=== PATIENT | female | born 1945 | race Caucasian/White ===

== ENCOUNTER → 2018-06-17 | Outpatient (CLI) | payer OTHER, MEDICARE | LOC: MRI 13:36 | DX: I69.993 Ataxia following unspecified cerebrovascular disease (principal); R26.9 Unspecified abnormalities of gait and mobility; R51 Headache; Z88.5 Allergy status to narcotic agent; Z88.8 Allergy status to other drugs, medicaments and biological substances ==

== ENCOUNTER → 2018-08-10 | Outpatient (CLI) | payer OTHER, MEDICARE | LOC: ULTRA 09:28 | DX: R41.3 Other amnesia (principal); R55 Syncope and collapse; R51 Headache; Z88.8 Allergy status to other drugs, medicaments and biological substances ==